=== PATIENT | female | born 1955 | race Caucasian/White ===

== ENCOUNTER → 2019-11-03 | Outpatient (CLI) | payer SELFPAY ==
--- NOTE | 2019-11-03 16:08 | RADIOLOGY REPORT (SQ) ---
EXAM DESCRIPTION: MRI LUMBAR SPINE WITHOUT IMAGES COMPLETED DATE/TIME: 11/03/2019 12:50 pm REASON FOR STUDY: M54.5 LOW BACK PAIN M54.5 LOW BACK PAIN COMPARISON: None. TECHNIQUE: Sagittal and Axial imaging includes T1, T2, STIR and gradient echo sequences. Coronal T2/ HASTE imaging. LIMITATIONS: None. FINDINGS: VISUALIZED UPPER ABDOMEN: Limited evaluation. No acute or suspicious findings suggested. SEGMENTATION: No transitional anatomy. The lowest well-developed disc space is labeled L5-S1. ALIGNMENT: Anatomic. VERTEBRAE: Intact. BONE MARROW: Normal. No marrow replacement or reactive changes. DISC SIGNAL: Normal disc signal. Minimal disc height loss at L4-5. POSTERIOR ELEMENTS: No pars defect. Mild lower lumbar facet arthropathy. HARDWARE: None in the spine. CORD AND CONUS: Normal in size and signal intensity. Conus medullaris terminates at L1. SOFT TISSUES: No aortic aneurysm seen. No bulky retroperitoneal adenopathy or mass. No paraspinal mas s or fluid. L1-L2: No significant spinal stenosis or exit foraminal stenosis. L2-L3: No significant spinal stenosis or exit foraminal stenosis. L3-L4: Mild circumferential disc bulge. There is wtax-[id number]-wamglagv resultant canal stenosis from disc bulge and ligamentum flavum thickening. Narrowing of the lateral recesses with contact of the trave rsing nerve roots. Mild bilateral neural foraminal narrowing. L4-L5: Postsurgical changes from posterior decompression L4. Mild circumferential disc bulge. There is mild to moderate canal stenosis from disc bulge and facet disease. Mild bilateral neural foramin al narrowing from disc and facet disease. L5-S1: Circumferential disc bulge with mild canal stenosis. Mild bilateral neural foraminal narrowin g from disc and facet disease. LOWER THORACIC: Incompletely imaged. No stenosis seen. SACRUM: Visualized upper sacrum intact. OTHER: No other significant findings. IMPRESSION: 1. No evidence of acute bony abnormality of the lumbar spine. 2. 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 Mild neural foraminal narrowing as above. TECHNICAL DOCUMENTATION: JOB ID: [id number] 2010 [employer]- All Rights Reserved Reading location - IP/workstation name: [email or web address]
== END ==
LOC: RAD 12:04
PROVIDERS: ATTEND Nurse Practitioner
DX: M54.5 Low back pain (principal)
CPT/HCPCS: 72148